=== PATIENT | female | born 1970 | race Caucasian/White ===

== ENCOUNTER → 2020-06-27 | Outpatient (CLI) | payer OTHER | LOC: MAMMO 15:59 | DX: Z12.31 Encounter for screening mammogram for malignant neoplasm of breast (principal); N63.20 Unspecified lump in the left breast, unspecified quadrant ==

== ENCOUNTER → 2020-07-02 | Outpatient (CLI) | payer OTHER | LOC: RAD 07:23 | DX: N60.02 Solitary cyst of left breast (principal) ==

== ENCOUNTER → 2021-01-31 | Outpatient (CLI) | payer OTHER | LOC: RAD 09:59 | DX: N05.9 Unspecified nephritic syndrome with unspecified morphologic changes (principal); N20.0 Calculus of kidney ==

== ENCOUNTER → 2021-08-15 | Outpatient (CLI) | payer OTHER | LOC: MAMMO 12:15 | DX: N64.4 Mastodynia (principal) ==

== ENCOUNTER → 2021-08-16 | Outpatient (CLI) | payer OTHER | LOC: RAD 08:45 | DX: I10 Essential (primary) hypertension (principal) ==

== ENCOUNTER → 2021-11-04 | Day surgery (SDC) | payer OTHER | END | disposition home or self-care (01) | LOC: MSO 07:16 | DX: Z12.11 Encounter for screening for malignant neoplasm of colon (principal); D64.9 Anemia, unspecified; I10 Essential (primary) hypertension; Z79.899 Other long term (current) drug therapy | CPT/HCPCS: 00812; J2704; J7120 ==

== ENCOUNTER → 2022-09-10 | Outpatient (CLI) | payer OTHER | LOC: MAMMO 16:00 | DX: Z12.31 Encounter for screening mammogram for malignant neoplasm of breast (principal) ==

== ENCOUNTER → 2023-09-16 | Outpatient (CLI) | payer OTHER | LOC: MAMMO 16:22 | DX: Z12.31 Encounter for screening mammogram for malignant neoplasm of breast (principal) ==

== ENCOUNTER → 2024-10-24 | Outpatient (CLI) | payer OTHER | LOC: MAMMO 16:12 | DX: Z12.31 Encounter for screening mammogram for malignant neoplasm of breast (principal); N64.89 Other specified disorders of breast ==

== ENCOUNTER → 2024-11-01 | Outpatient (CLI) | payer OTHER | LOC: MAMMO 07:56 | DX: N60.02 Solitary cyst of left breast (principal) ==